=== PATIENT | female | born 1990 | race Caucasian/White ===

== ENCOUNTER → 2016-10-28 | Day surgery (SDC) | payer OTHER ==
[~2016-10-28] VITALS: Ht 175.3 cm; Wt 109.5 kg
[~2016-10-28] MED LIST: ACETAMINOPHEN 1000 MG/100 ML VIAL IV ONE; CYCL1TAB29 PO; DICL75TA PO; DO NOT ADM ANY ANTICOAGULANT DRUGS PRN; HYDR-3533 PO; HYDROmorphone HCL PF 2 MG/ML VIAL ONE; KETOROLAC TROMETHAMINE 30 MG/ML (IVP) VIAL IV PUSH SCH; LACTATED RINGER'S 1000 ML INJ 1,000 ML IV ONE; LIDOCAINE 1%/EPINEPHrine 1:100,000 SOLN 20 ML VIAL ONE; LIDOCAINE 1%/EPINEPHrine 1:100,000 SOLN 50 ML VIAL ONE; MIDAZOLAM HCL 2 MG/2 ML VIAL ONE; ONDANSETRON HCL 4 MG/2 ML VIAL IV PUSH ONE; PROPOFOL 200 MG/20 ML AMP IV ONE; SILVER NITR/POTASSIUM NITRATE APPLICATORS ONE; SPIR25TA PO; VASOPRESSIN INJ 20 UNITS/ML VIAL ONE; ceFAZolin INJ 1,000 MG VIAL ONE; oxyCODONE/ACETAMINOPHEN 5 MG/325 MG TAB PO PRN
[2016-10-28 11:54] LABS: AUTOMATED NEUTROPHIL # 5.4 TH/MM3 (1.8-7.7); BASOPHIL % 0.4 % (0.0-2.0); EOSINOPHIL # 0.1 TH/MM3 (0-0.4); EOSINOPHIL % 0.9 % (0.0-4.0); HEMATOCRIT 41.6 % (35.0-46.0); HEMO FLAGS DIFF FINAL; LYMPH % 27.1 % (9.0-44.0); LYMPHOCYTE # 2.2 TH/MM3 (1.0-4.8); MEAN CELL VOLUME 85.4 FL (80.0-100.0); MEAN CORPUSCULAR HEMOGLOBIN 28.2 PG (27.0-34.0); NEUT % 66.6 % (16.0-70.0); PLATELET COUNT 210 TH/MM3 (150-450); RED BLOOD COUNT 4.87 MIL/MM3 (4.00-5.30); RED CELL DISTRIBUTION WIDTH 13.6 % (11.6-17.2); WHITE BLOOD COUNT 8.1 TH/MM3 (4.0-11.0)
[2016-10-28 12:07] LABS: APTT (PATIENT) 25.5 SEC (24.3-30.1); PROTHROMBIN TIME - PATIENT 10.6 SEC (9.8-11.6)
[2016-10-28 12:22] LABS: ALT (GPT) 21 U/L (10-53); ANION GAP 8 MEQ/L (5-15); AST (GOT) 13 U/L (15-37); BICARBONATE 26.8 MEQ/L (21.0-32.0); BLOOD UREA NITROGEN 13 MG/DL (7-18); CHLORIDE 106 MEQ/L (98-107); GLOMERULAR FILTRATION RATE 100 ML/MIN (>89); SODIUM (NA) 141 MEQ/L (136-145)
[2016-10-28 12:26] LABS: ALKALINE PHOSPHATASE 81 U/L (45-117); TOTAL BILIRUBIN ADULT 0.2 MG/DL (0.2-1.0)
[2016-10-28 12:31] LABS: BHCG SCREEN QUALITATIVE LESS THAN 1 MIU/ML (0-5)
[2016-10-28 14:40] VITALS: BP 123/75; PULSE 71; RESP 16; TEMP 98.7; O2SAT 98
--- NOTE | 2016-10-28 16:23 | MP ---
cc: CATHLEEN MSOQUEDA KELLY L. MD DATE OF SURGERY 10/28/2016 PREOPERATIVE DIAGNOSIS High-grade cervical dysplasia. POSTOPERATIVE DIAGNOSIS High-grade cervical dysplasia PROCEDURE Exam under anesthesia, cold knife conization of cervix. Endocervical curettage. 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 ANESTHESIA Laryngeal mask anesthesia. ESTIMATED BLOOD LOSS Less than 20 mL HISTORY A 26-year-old female, abnormal Pap smear, underwent colposcopy. Office biopsy showed grade 2 to grade 3 squamous dysplasia. Endocervical curetting was normal. Colposcopy showed fairly extensive acetowhite epithelial changes circumferentially around the face of the cervix most noted at the approximately 10-2 o'clock position. Also some subtle vascular changes. She was counseled regarding options and presents now for surgical evaluation and management. Findings today are as described from colposcopy in the office. PROCEDURE The patient taken to operating room, placed in dorsal lithotomy position after laryngeal mask anesthesia was administered. A time-out was undertaken. The patient was identified by sight recognition and hospital ID [email or web address]. Exam under anesthesia was performed with findings as described above. She was prepped, draped sterile fashion. Dilute acetic acid is placed on the cervix with changes again outlined and are visible as noted in the office even without colposcopic magnification. In-and-out catheterization of the bladder was performed. 0 Vicryl sutures were placed at the 3 o'clock and 9 o'clock position on the cervix for hemostasis and countertraction. The axis of the cervix was determined with a small dilator. The uterus was slightly retroverted. Lidocaine epinephrine was injected circumferentially around the stroma of the cervix. A 15 blade scalpel was used to outline around the margin of abnormal-appearing tissue and angle that in toward the endocervical canal to do a wide conization angled in toward the endocervical canal and the specimen was removed and labeled as cervix conization. Endocervical curetting was performed, multiple passes, circumferentially. The tissue was combined and labeled as endocervical curettings. The cone bed was irrigated, rendered hemostatic with cautery and then topical Monsel's solution completely hemostatic. There were no remaining foreign objects in the vagina. Preliminary and final counts were correct. She was returned to dorsal supine position and was pending reversal of anesthesia when I left the operating room to precede her to the Post Anesthesia Care Unit. MD MARISSA Leonardo/JANET /1:54 PM /4:09 PM
== END | disposition home or self-care (01) ==
LOC: HSDC 10:28
PROVIDERS: ATTEND Obstetrics & Gynecology Gynecologic Oncology
DX: D06.0 Carcinoma in situ of endocervix (principal); Z01.818 Encounter for other preprocedural examination
CPT/HCPCS: 00940; 36415; 57520; 80053; 84703; 85025; 85610; 85730; 86850; 86900; 86901; 88305; 88307; J0131; J0690; J1170; J1885; J2250; J2405; J7120

== ENCOUNTER 2016-12-06 20:38 | Emergency (ER) | payer OTHER ==
[~2016-12-06] VITALS: Ht 172.7 cm; Wt 110.0 kg
[~2016-12-06 20:38] MED LIST changes: -ACETAMINOPHEN 1000 MG/100 ML VIAL IV ONE; -CYCL1TAB29 PO; -DICL75TA PO; -DO NOT ADM ANY ANTICOAGULANT DRUGS PRN; -HYDR-3533 PO; -HYDROmorphone HCL PF 2 MG/ML VIAL ONE; -KETOROLAC TROMETHAMINE 30 MG/ML (IVP) VIAL IV PUSH SCH; -LACTATED RINGER'S 1000 ML INJ 1,000 ML IV ONE; -LIDOCAINE 1%/EPINEPHrine 1:100,000 SOLN 20 ML VIAL ONE; -LIDOCAINE 1%/EPINEPHrine 1:100,000 SOLN 50 ML VIAL ONE; -MIDAZOLAM HCL 2 MG/2 ML VIAL ONE; -ONDANSETRON HCL 4 MG/2 ML VIAL IV PUSH ONE; -PROPOFOL 200 MG/20 ML AMP IV ONE; -SILVER NITR/POTASSIUM NITRATE APPLICATORS ONE; -VASOPRESSIN INJ 20 UNITS/ML VIAL ONE; -ceFAZolin INJ 1,000 MG VIAL ONE; -oxyCODONE/ACETAMINOPHEN 5 MG/325 MG TAB PO PRN
[2016-12-06 20:39] VITALS: BP 138/98; PULSE 103; RESP 18; TEMP 98.3; O2SAT 97
[2016-12-06] MEDS ORDERED: MORPHINE SULFATE 8 MG/ML INJ IM ONE (22:30)
[2016-12-06] MEDS ORDERED: CYCL1TAB29 PO (22:30)
[2016-12-06] MEDS ORDERED: HYDR-3533 PO (22:30)
[2016-12-06] MEDS ORDERED: LORazepam 2 MG/ML VIAL IM ONE (22:30)
[2016-12-06] MEDS ORDERED: DICL75TA PO (22:30)
--- NOTE | 2016-12-06 22:33 | PD ---
HPI Chief Complaint: Back/ Neck Pain or Injury Time Seen by Provider: 22:31 Travel History International Travel<30 days: No Contact w/Intl Traveler<30days: No Traveled to known affect area: No History of Present Illness HPI 26-year-old white female presents to emergency Department with complaints of lower back pain. She states that she was about to go to work today when she felt her back go out. She states that she was not bending or lifting at the time. She states that she has severe pain across the lower back. She denies any acute bowel or bladder changes. No radiation pain into her legs. She states that she's had a back problem in the past. She states that this typically occurs once a year. No recent illness. PFSH Past Medical History Narrative Medical Cervical dysplasia, hirsutism, Back injury Tetanus Vaccination: < 5 Years ?: Not LMP: 11/28/16 Past Surgical History Narrative Surgical Cervical conization, excision of right axilla granuloma Social History Alcohol Use: No Tobacco Use: No Substance Use: Yes (MARIJUANA) Allergies-Medications (Allergen,Severity, Reaction): Coded Allergies: No Known Allergies (Unverified , 12/06/16) Reported Meds & Prescriptions Reported Meds & Active Scripts Active Flexeril (Cyclobenzaprine HCl) 10 Mg Tab 10 Mg PO TID Diclofenac Sodium DR (Diclofenac Sodium) 75 Mg Tabdr 75 Mg PO BID Lortab (Hydrocodone-Acetaminophen) 5-325 Mg Tab 1 Tab PO Q6H PRN Reported Spironolactone 25 Mg Tab 25 Mg PO DAILY Review of Systems Except as stated in HPI: all other systems reviewed are Neg Physical Exam Narrative GENERAL: Well-developed, well-nourished in no acute distress. Nontoxic appearing. HEAD: Normocephalic, atraumatic. EYES: Pupils equal round and reactive. Extraocular motions intact. No scleral icterus. No injection or drainage. ENT: TMs clear without erythema. The external auditory canals clear. Nose: clear . Posterior pharynx is pink and moist. No tonsillar edema or exudate. Uvula midline. Airway patent. NECK: Trachea midline.Supple, nontender, moves head freely. No central bony tenderness or spasm. CARDIOVASCULAR: Regular rate and rhythm without murmurs, gallops, or rubs. RESPIRATORY: Clear to auscultation. Breath sounds equal bilaterally. No wheezes , rales, or rhonchi. GASTROINTESTINAL: Abdomen soft, non-tender, nondistended. No hepato-splenomegaly , or palpable masses. No guarding. EXTREMITIES: No clubbing, cyanosis, or edema. No joint tenderness, effusion, or edema noted. BACK: No central bony tenderness to palpation. Patient has diffuse lower lumbar tenderness with mild spasm. Decreased range of motion. No saddle anesthesia. No radicular pain. Without deformity or crepitance. No flank tenderness. Data Data Last Documented VS Vital Signs Date Time Temp Pulse Resp B/P Pulse Ox O2 Delivery O2 Flow Rate FiO2 12/06/16 20:39 98.3 103 18 138/98 97 Room Air Orders Lorazepam Inj (Ativan Inj) (12/06/16 22:30) Morphine Inj (Morphine Inj) (12/06/16 22:30) MDM Medical Decision Making Medical Screen Exam Complete: Yes Emergency Medical Condition: Yes Medical Record Reviewed: Yes Differential Diagnosis MDM: High Differential diagnoses: AAA,Fracture, sprain, strain, HNP, nerve or vascular injury, epidural abscess, pilonidal cyst, pyelonephritis, UTI, nephrolithiasis, ureterolithiasis Narrative Course Patient given morphine 8 mg IM and 2 mg of Ativan IM. This acute back sprain Diagnosis Primary Impression: acute back sprain Patient Instructions: Narcotic given in the ED, General Instructions Departure Forms: Tests/Procedures, Work Release Special Instructions: No work 4 days. Additional Instructions: Rest. Ice for the next 3 days followed by heat . Lortab, Flexeril and Voltaren. Follow-up with your chiropractor this week. Follow-up with a primary care doctor in one week. Return to the ER for emergencies. Med/Other Pt SpecificInfo: Prescription(s) given Scripts Cyclobenzaprine (Flexeril)10 Mg Tab10 Mg PO TID #30 TAB Prov:Mateo Gamboa MD 12/06/[address] 75 Mg Tabdr75 Mg PO BID #20 TAB Prov:Mateo Gamboa MD 12/06/16 Hydrocodone-Acetaminophen (Lortab)5-325 Mg Tab1 Tab PO Q6H PRN (PAIN) #20 TAB Prov:Mateo Gamboa MD 12/06/16 Disposition: 01 DISCHARGE HOME Condition: Stable Gilson Arriaza Dec 06, 2016 22:32
== END 2016-12-06 23:57 | disposition home or self-care (01) ==
LOC: NEPD 20:38
DX: S33.5XXA Sprain of ligaments of lumbar spine, initial encounter (principal); M62.830 Muscle spasm of back; Z87.42 Personal history of other diseases of the female genital tract; Z87.39 Personal history of other diseases of the musculoskeletal system and connective tissue; X58.XXXA Exposure to other specified factors, initial encounter
CPT/HCPCS: 96372; 99284; J2060; J2270